=== PATIENT | female | born 1990 | race American Indian/Alaskan Native ===

== ENCOUNTER 2016-10-26 03:58 | Emergency (ER) | payer MEDICAID ==
[2016-10-26 04:21] VITALS: BMI 32.5
[2016-10-26 04:39] LABS: RBC URINE 12 /hpf (0-3); URINE BACTERIA OCC (<OCC); URINE BILIRUBIN NEGATIVE (NEGATIVE); URINE COLOR Yellow (YELLOW); URINE GLUCOSE (UA) NORMAL (Normal); URINE KETONE 1+ mg/dL (NEGATIVE); URINE LEUKOCYTE ESTERASE 3+ Leu/uL (Negative); URINE PROTEIN 2+ mg/dL (NEGATIVE); URINE UROBILINOGEN NORMAL mg/dL (0.2-1.0); WBC URINE 80 /hpf (0-5)
[2016-10-26 04:40] LABS: URINE BLOOD TRACE (NEGATIVE)
--- NOTE | 2016-10-26 05:04 | OBHP ---
Datetime: 10/26/2016 04:26 Admit Comment, IP Provider: chief complaint- abdominal pain HPI 26 y/o at 38.3 wga here with c/o contractions since 1 am.patient called the ambulance and was brought to [facility].here she also reports having increased swelling her ankles.Patient denies headac he, nausea, vomiting, chest pain, shortness of breath, numbness or tinglking in hands and feet course uncomplicated as per patient PMH refuses to answer PSH refuses to answer OBGYN HX ; patient refuses to give details on ehr Social hx denies smoking status Exam see exam section A/P 25 y/o at 38.3 wga with c/o abdominal pain.BP elevated on arrival. Recommended workup for elevated bp and admission to patient patient does not want to be admitted.Discussed risk of leaving the hopsital to the patient .Patien t voices udnerstanding the risks including risk of seizure, of herself and .patient signed out against medical advice and took herslf off the monitor and left the floor General - PN: Normal Contraction Comments Provider: every 3 min Vital Signs Provider: Reviewed FHR Category Provider Fetus A: Category I Dilatation, Provider: 1
== END 2016-10-26 04:50 | disposition left against medical advice (07) ==
LOC: C.EROB 03:58 → C.4D 04:28 → UNDOADMIN 04:28 → C.EROB 04:50 → UNDODISIN 04:50
DX: O16.3 Unspecified maternal hypertension, third trimester (principal); R10.9 Unspecified abdominal pain; O26.893 Other specified pregnancy related conditions, third trimester; Z3A.38 38 weeks gestation of pregnancy

== ENCOUNTER 2018-07-29 12:53 | Emergency (ER) | payer SELFPAY ==
[2018-07-29 12:54] VITALS: BMI 32.5
[2018-07-29 13:00] VITALS: BP 121/85; PULSE 79; RESP 18; TEMP 98.8; O2SAT 99
--- NOTE | 2018-07-29 13:09 | C.PDOC ---
History Of Present Illness 28 y/o female reports to ED complaining of right knee pain since yesterday. States she was walking down the steps and stepped incorrectly, twisting her right knee. Patient denies any fall, head injuries, or LOC. She rates the pain as 7/10 and describes it as a sharp pain, medially of the right knee. Patient denies taking any pain medications or icing the knee. Patient is ambulating with a limp. Time Seen by Provider: 07/29/18 13:02 Chief Complaint (Nursing): Lower Extremity Problem/Injury History Per: Patient History/Exam Limitations: no limitations Onset/Duration Of Symptoms: Days Current Symptoms Are (Timing): Still Present Past Medical History Reviewed: Historical Data, Nursing Documentation, Vital Signs Vital Signs: Last Vital Signs Temp 98.8 F 07/29/18 12:56 Pulse 79 07/29/18 12:56 Resp 18 07/29/18 12:56 BP 121/85 07/29/18 12:56 Pulse Ox 99 07/29/18 12:56 - Medical History PMH: No Chronic Diseases Family History: States: Hypertension - Social History Hx Tobacco Use: No Hx Alcohol Use: Yes Hx Substance Use: No - Immunization History Hx Tetanus Toxoid Vaccination: No Hx Influenza Vaccination: No Hx Pneumococcal Vaccination: No Review Of Systems Constitutional: Negative for: Fever, Chills Cardiovascular: Negative for: Chest Pain Respiratory: Negative for: Shortness of Breath Gastrointestinal: Negative for: Nausea, Vomiting Musculoskeletal: Positive for: Other (Right Knee Pain). Negative for: Neck Pain Neurological: Negative for: Numbness, Other (LOC) Physical Exam - Physical Exam Appears: Non-toxic, No Acute Distress Skin: Warm, Dry Head: Atraumatic, Normacephalic Eye(s): bilateral: Normal Inspection Oral Mucosa: Moist Extremity: Normal ROM, Tenderness (to palpation medially to the patella; neurovascularly intact), Capillary Refill (less than 2 seconds), No Deformity, No Swelling (or ecchymosis) Extremity: Bilateral: Normal Color And Temperature Pulses: Left Dorsalis Pedis: Normal, Right Dorsalis Pedis: Normal Neurological/Psych: Oriented x3, Normal Speech, Normal Motor, Normal Sensation Gait: Unsteady (Limp) ED Course And Treatment O2 Sat by Pulse Oximetry: 99 (RA) Pulse Ox Interpretation: Normal - Other Rad Knee XR X-Ray: Read By Radiologist Interpretation: FINDINGS: BONES: Normal. No fracture. JOINTS: Normal. No osteoarthritis. JOINT EFFUSION: None. OTHER FINDINGS: None. IMPRESSION: Normal radiographs of the right knee. Medical Decision Making Medical Decision Making: Plan: --Tylenol PO --Knee XR -neg Disposition Counseled Patient/Family Regarding: Studies Performed, Diagnosis, Need For Followup, Rx Given - Disposition Referrals: Mary Grace Mccracken MD [Staff Provider] - Disposition: HOME/ ROUTINE Disposition Time: 13:54 Condition: STABLE Additional Instructions: Start Naproxen Rest, Ice, Compression and Elevation Follow up with Ortho in 1-2 days for MRI imaging Return to the ED if symptoms worsen Prescriptions: Naproxen [Naprosyn] 500 mg PO BID #30 tablet Instructions: Knee Sprain (DC) Forms: [facility] (Greek), Work Excuse - Clinical Impression Clinical Impression: Right knee sprain, Joint pain - PA / PONDMAN / Resident Statement MD/DO has reviewed & agrees with the documentation as recorded. - Scribe Statement The provider has reviewed the documentation as recorded by the Scribjayant Rodas All medical record entries made by the Kbibjayant were at my direction and personally dictated by me. I have reviewed the chart and agree that the record accurately reflects my personal performance of the history, physical exam, medical decision making, and the department course for this patient. I have also personally directed, reviewed, and agree with the discharge instructions and disposition.
--- NOTE | 2018-07-29 14:49 | RAD ---
Date of service: 07/29/2018 PROCEDURE: Right Knee Radiographs. HISTORY: pain COMPARISON: None. FINDINGS: BONES: Normal. No fracture. JOINTS: Normal. No osteoarthritis. JOINT EFFUSION: None. OTHER FINDINGS: None. IMPRESSION: Normal radiographs of the right knee.
== END 2018-07-29 14:17 | disposition home or self-care (01) ==
LOC: C.ER 12:53
DX: S83.91XA Sprain of unspecified site of right knee, initial encounter (principal); X50.1XXA Overexertion from prolonged static or awkward postures, initial encounter; M25.561 Pain in right knee